=== PATIENT | female | born 1960 | race Two or more races ===

== ENCOUNTER 2017-09-28 12:33 | Emergency (ER) | payer OTHER ==
[~2017-09-28] VITALS: Ht 154.9 cm; Wt 68.0 kg
[2017-09-28 12:50] VITALS: BP 122/78
[2017-09-28] MEDS ORDERED: NORVASC5 MG ORAL (13:17)
[2017-09-28] MEDS ORDERED: PROPRANOLOL HCL20 MG ORAL (13:17)
[2017-09-28] MEDS ORDERED: SYNTHROID50 MCG ORAL (13:17)
[2017-09-28] MEDS ORDERED: COGENTIN1 MG ORAL (13:17)
[2017-09-28] MEDS ORDERED: VITAMIN D1000 UNI1 ORAL (13:17)
[2017-09-28] MEDS ORDERED: TRAZODONE HCL100 MG ORAL (13:17)
[2017-09-28] MEDS ORDERED: PROTONIX40 M2 GT (13:17)
[2017-09-28] MEDS ORDERED: PHENYTOIN50 MG ORAL (13:17)
[2017-09-28] MEDS ORDERED: TEGRETOL XR200 MG ORAL (13:17)
--- NOTE | 2017-09-28 13:34 | Emergency Room Report ---
History of Present Illness General Chief Complaint: Seizure Source: Medical Record, EMS Present Illness HPI 57-year-old female sent from facility for alleged seizure-like activity. Patient allegedly had 3 seizures in 1 minute. As per the seizure activity EMS endorses that facility states right hand tremors. Per review of the EMR, patient has history of Parkinson's, autism, developmental delay and seizures She takes Dilantin and carbamazepine History of present illness otherwise limited as patient is nonverbal She is not currently post ictal, there was no urinary incontinence or tongue biting noticed There was no resulting trauma from seizure activity Allergies: Coded Allergies: No Known Allergies (Unverified , 09/28/17) Patient History Past Medical History: other - See history of present illness Past Surgical History: none Pertinent Family History: none Social History: Denies: smoking, alcohol use, drug use Now: No Immunizations: UTD Reviewed Nursing Documentation: PMH: Agreed, PSxH: Agreed Nursing Documentation-PMH Hx Neurological Problems: No - PARKINSON'S DISEASE Hx Cerebrovascular Accident: No - AUTISM, ORGANIC BRAIN SYNDROME Hx Seizures: Yes Review of Systems All Other Systems: limited - Nonverbal at baseline Physical Exam Vital Signs Date Time Temp Pulse Resp B/P (MAP) Pulse Ox O2 Delivery O2 Flow Rate FiO2 09/28/17 12:29 97.7 90 20 122/78 97 Room Air 97.7 Sp02 EP Interpretation: reviewed, normal General Appearance: normal inspection, well appearing, no apparent distress, alert, non-toxic Head: normocephalic, atraumatic Eyes: bilateral eye PERRL, bilateral eye EOMI ENT: normal ENT inspection, normal pharynx, no angioedema, TMs + canals normal , uvula midline, moist mucus membranes Neck: normal inspection, full range of motion, supple, thyroid normal, no meningismus, no bony tend Respiratory: normal inspection, lungs clear, normal breath sounds, no rhonchi, no respiratory distress, no retraction, no accessory muscle use, no wheezing, speaking full sentences Cardiovascular #1: regular rate, rhythm, no edema, no JVD, normal capillary refill Gastrointestinal: normal inspection, normal bowel sounds, non tender, soft, no mass, no peritonitis, non-distended, no guarding, no hernia, no pulsatile mass Genitourinary: no CVA tenderness Musculoskeletal: normal inspection, back normal, normal range of motion, no calf tenderness, pelvis stable, Jaspreet's Sign negative Neurologic: normal inspection, alert, responsive, mule operator III-XII nml as tested, motor strength/tone normal, cerebellar normal, normal gait, speech normal, other - right hand tremors Psychiatric: normal inspection, judgement/insight normal, mood/affect normal, no suicidal/homicidal ideation, no delusions Skin: normal inspection, normal color, no rash Lymphatic: normal inspection, no adenopathy Medical Decision Making Diagnostic Impression: Primary Impression: Seizure-like activity Additional Impression: Parkinsons disease ER Course Vital signs stable, afebrile Dilantin level therapeutic, carbamazepine level subtherapeutic: Patient was given loading dose of 400 mg oral carbamazepine I'm questioning whether patient actually had seizure, right hand tremor likely related to Parkinson's disease Patient was never postictal Will discharge back to facility ER course: Patient has remained stable during ED stay. Disposition: Patient is to be discharged to home. Patient is instructed to follow up with their primary care doctor within 5 days. Strict return precautions discussed with patient such as fever, chills, worsening/severe pain, nausea, vomiting, which may indicate severe illness. Patient verbalizes understanding and agrees with plan. Please note that this Emergency Department Report was dictated using [employer] technology software, occasionally this can lead to erroneous entry secondary to interpretation by the dictation equipment Last Vital Signs Date Time Temp Pulse Resp B/P (MAP) Pulse Ox O2 Delivery O2 Flow Rate FiO2 09/28/17 12:50 97.7 75 20 122/78 97 Room Air 97.7 Status: improved Disposition: HOME, SELF-CARE Referrals: NOT CHOSEN IPA/,REFERRING (PCP) MARIA LUISA SPRINGER M.D. Sep 28, 2017 13:34
[2017-09-28] MEDS: carBAMazepine 200mg tab ORAL ONE (13:47)
[2017-09-28 14:22] VITALS: BP 113/48
--- NOTE | 2017-10-03 18:54 | Cardiology Report ---
APPROVED REPORT EKG Measurement Heart [id number] Normal sinus rhythm Normal ECG
== END 2017-09-28 14:24 | disposition home or self-care (01) ==
LOC: EDSEX 12:33 → EDBD 12:33 → EMR 13:16 → CANBEDREQ 13:44 → EMR 14:24
DX: G40.909 Epilepsy, unspecified, not intractable, without status epilepticus (principal); G20 Parkinson's disease
CPT/HCPCS: 36415; 80156; 80185; 93005; 99282